=== PATIENT | female | born 2000 | race Two or more races ===

== ENCOUNTER 2023-05-19 15:22 | Emergency (ER) | payer OTHER ==
[~2023-05-19] VITALS: Ht 152.4 cm; Wt 70.8 kg
[2023-05-19 17:20] LABS: HEMATOCRIT 39.2 % (36.0-45.00); HEMOGLOBIN 12.9 g/dL (12.0-15.00); MEAN CELL VOLUME 84.7 fL (80.00-100.00); MEAN CORPUSCULAR HEMOGLOBIN 27.8 pg (27.00-32.0); MEAN CORPUSCULAR HGB CONC 32.8 g/dl (32.0-36.0); PLATELET COUNT 242 K/uL (150-450); RED BLOOD COUNT 4.63 M/uL (4.00-6.00); RED CELL DISTRIBUTION WIDTH 13.1 % (11.5-14.5)
== END 2023-05-19 19:07 | disposition home or self-care (01) ==
LOC: ER 15:23
PROVIDERS: General Practice
DX: K05.10 Chronic gingivitis, plaque induced (principal)